=== PATIENT | female | born 1950 | race Caucasian/White ===

== ENCOUNTER 2017-12-11 14:07 | Outpatient (CLI) | payer MEDICARE, OTHER ==
--- NOTE | 2017-12-25 09:09 | Mammography Report ---
Reason: SCREENING MAMMO Procedure Date: 12/11/2017 Accession Number: [id number] / [id number] Procedure: MGN - Screening Mammo Dig Bilat CPT Code: FULL RESULT: EXAM: Screening Mammo Dig Bilat DATE: 12/11/2017 2:36 PM CLINICAL HISTORY: Routine screening TECHNIQUE: Bilateral CC and MLO views were obtained. COMPARISON: Unavailable. FINDINGS: There are scattered fibroglandular densities. No suspicious masses, clustered microcalcifications, or regions of architectural distortion are identified. IMPRESSION: Negative. If prior images from [facility] become available, an addended report will be issued. RECOMMENDATION: Routine annual screening unless otherwise clinically indicated. BIRADS CATEGORY 1: Negative. STANDARD QUALIFYING STATEMENTS: 1. This examination was reviewed with the aid of Computer-Aided Detection (CAD). 2. A negative or benign imaging report should not delay biopsy if clinically suspicious findings are present. Consider surgical consultation if warrented. More than 5% of cancers are not identified by imaging. 3. Dense breasts may obscure an underlying neoplasm.
== END 2017-12-11 14:08 | disposition home or self-care (01) ==
LOC: DI.N 14:07
PROVIDERS: ATTEND Registered Nurse
DX: Z12.31 Encounter for screening mammogram for malignant neoplasm of breast (principal)
CPT/HCPCS: 77067

== ENCOUNTER 2018-10-19 12:38 | Outpatient (CLI) | payer MEDICARE ==
--- NOTE | 2018-10-20 14:05 | XRAY Report ---
Reason: PAIN IN LEFT FOOT Procedure Date: 10/19/2018 Accession Number: [id number] / [id number] Procedure: XRS - Foot 3 View LT CPT Code: FULL RESULT: EXAM: LEFT FOOT RADIOGRAPHY EXAM DATE: 10/19/2018 01:07 PM. CLINICAL HISTORY: Acute pain in left foot. Focal to the cuboid and base of fifth metatarsal. COMPARISON: None. TECHNIQUE: 3 views. FINDINGS: Bones: Mildly displaced avulsion fracture seen arising from the dorsal proximal aspect of the left navicular seen on the lateral view. Additionally, there is a crescentic calcification seen along the plantar and lateral aspect of the left fourth metatarsal head consistent with an avulsion fracture measuring overall length approximately 7 mm. Tiny calcific density seen along the lateral margin of the left fifth metatarsal head may represent an avulsion fracture. Plantar and posterior calcaneal spurs. Joints: Mild degenerative changes of the first MTP joint and left midfoot. No dislocation. Soft Tissues: Soft tissue swelling. IMPRESSION: 1. Left fourth metatarsal head and dorsal proximal left navicular avulsion fractures. Possible tiny chip avulsion fracture from the left lateral fifth metatarsal head. RADIA
== END 2018-10-19 12:39 | disposition home or self-care (01) ==
LOC: DI.S 12:38
PROVIDERS: ATTEND Nurse Practitioner Family
DX: S92.342A Displaced fracture of fourth metatarsal bone, left foot, initial encounter for closed fracture (principal); S92.252A Displaced fracture of navicular [scaphoid] of left foot, initial encounter for closed fracture; M19.072 Primary osteoarthritis, left ankle and foot

== ENCOUNTER 2018-12-16 09:24 | Outpatient (CLI) | payer MEDICARE ==
--- NOTE | 2018-12-17 14:06 | XRAY Report ---
Reason: RIGHT SHOULDER PAIN Procedure Date: 12/16/2018 Accession Number: [id number] / [id number] Procedure: XRS - Shoulder 3 View RT CPT Code: FULL RESULT: EXAM: RIGHT SHOULDER RADIOGRAPHY EXAM DATE: 12/16/2018 09:42 AM. CLINICAL HISTORY: Right shoulder pain acute onset for 1 month, no known injury. COMPARISON: None. TECHNIQUE: 3 views. FINDINGS: Bones: No fracture or bone lesion. Joints: The glenohumeral and acromioclavicular joints demonstrate a mild degenerative process; no dislocation or subluxation seen. Soft tissues: The visualized hemithorax is unremarkable. No soft tissue swelling or calcification. IMPRESSION: Mild degenerative changes in the right shoulder radiography. RADIA
== END 2018-12-16 09:25 | disposition home or self-care (01) ==
LOC: DI.S 09:24
PROVIDERS: ATTEND Physician Assistant
DX: M19.011 Primary osteoarthritis, right shoulder (principal)

== ENCOUNTER 2019-03-08 16:19 | Outpatient (CLI) | payer MEDICARE ==
--- NOTE | 2019-03-08 18:04 | MRI Report ---
Reason: ROTATOR CUFF IMPINGEMENT SYNDROME Procedure Date: 03/08/2019 Accession Number: [id number] / [id number] Procedure: MRI - Shoulder RT W/O CPT Code: Final Report FULL RESULT: EXAM: RIGHT SHOULDER MRI WITHOUT CONTRAST EXAM DATE: 03/08/2019 05:08 PM. CLINICAL HISTORY: Rotator cuff impingement syndrome. COMPARISON: None. TECHNIQUE: Multiplanar, multisequence T1-weighted and fluid-sensitive sequences of the shoulder without contrast. Other: None. FINDINGS: Acromioclavicular Region: The acromion is type II unipartite. AC joint shows some synovial hypertrophic change and small joint effusion. The coracoacromial and coracoclavicular ligaments are intact. There is some fluid in the bursa as well. Glenohumeral Region: No subluxation. No effusion or loose bodies. There is minimal thinning of the inferior aspect of the glenohumeral articulation cartilaginous thickness. The glenohumeral ligaments and joint capsule are unremarkable. Bone Marrow: No fractures. Benign-appearing cystic structure seen in the anterior aspect of the humeral head. Series 401 image 19. Labrum: Type II SLAP lesion with some extension into the anterior labrum. Series 401 image 19, series 501 image 16. No paralabral cyst. Musculature/Rotator Cuff: Anterior high-grade partial-thickness undersurface tear distal supraspinatus portion of the rotator cuff involves about 90% of the tendon thickness and measures about 5 x 5 mm. Series 701 image 25, series 501 image 11. Remainder of the supraspinatus tendon and a portion of the infraspinatus tendon is thickened and shows increased T2 signal. Subscapularis and teres minor are normal. No proximal muscle edema or fatty atrophy is seen. Biceps Tendon: The long head of the biceps tendon and biceps tammi are intact. Other: The subcutaneous tissues are unremarkable. IMPRESSION: 1. Type II unipartite undersurface osseous acromion shape. AC joint shows moderate osteoarthritic change. Some fluid is present in the bursa. 2. Type II SLAP lesion with some extension into the anterior labrum. No paralabral cyst. 3. Anterior supraspinatus shows a high-grade undersurface partial-thickness tear involving about 90% of the tendon thickness measuring about 5 x 5 mm. Remainder of the supraspinatus and a portion of the infraspinatus show significant tendinitis. 4. Biceps tendon appears unremarkable. RADIA
== END 2019-03-08 16:20 | disposition home or self-care (01) ==
LOC: DI 16:19
PROVIDERS: ATTEND Orthopaedic Surgery Sports Medicine
DX: M19.011 Primary osteoarthritis, right shoulder (principal); S43.431A Superior glenoid labrum lesion of right shoulder, initial encounter; M75.101 Unspecified rotator cuff tear or rupture of right shoulder, not specified as traumatic; M75.91 Shoulder lesion, unspecified, right shoulder

== ENCOUNTER 2023-04-03 13:59 | Emergency (ER) | payer MEDICARE ==
[2023-04-03] MEDS ORDERED: ACETAMINOPHEN 325 MG TABLET PO STA (14:36)
--- NOTE | 2023-04-03 14:54 | ED Physician Documentation ---
History of Present Illness - Stated complaint Stated Complaint: HIGH BP,ERAZO - Chief complaint Chief Complaint: Heent - History obtained from History obtained from: Patient - Additonal information Additional information: Patient is a 72-year-old female presenting for evaluation of headache and elevated blood pressure readings. Patient states that she is had a 2 out of 10 mild throbbing headache to the right side of her head for the past few days. She does not usually get headaches. She denies exertion at onset of headache. She does not take a blood thinner. She states that today while at [facility] she checked her blood pressure. She denies that her headache was worse at the time. The machine read that her systolic was in the 170s and was blinking redness and that this was dangerous. She has been monitoring her blood pressure At home and has noted that her blood pressures were in the 140s to 150s. She does not currently take any medications for her blood pressure. She reached out to [facility] and they directed her to the emergency department for evaluation. She denies visual disturbances, chest pain, shortness of air, dizziness, syncope. She only takes allopurinol for gout.She has not taken anything for her headache. Review of Systems Constitutional: denies: Fever Cardiac: denies: Chest pain / pressure Respiratory: denies: Dyspnea GI: denies: Abdominal Pain Neurologic: reports: Headache. denies: Syncope PD PAST MEDICAL HISTORY - Present Medications Home Medications: Ambulatory Orders Medication Instructions Recorded Confirmed allopurinoL [Allopurinol] 400 mg PO DAILY 04/03/23 - Allergies Allergies/Adverse Reactions: Allergies Allergy/AdvReac Type Severity Reaction Status Date / Time No Known Drug Allergies Allergy Verified 04/03/23 14:16 PD ED PE NORMAL - General General: Alert and oriented X 3, No acute distress, Well developed/nourished - HEENT HEENT: Atraumatic, PERRL, EOMI, Moist mucous membranes, Pharynx benign - Neck Neck: Supple, no meningeal sign - Cardiac Cardiac: RRR - Respiratory Respiratory: No respiratory distress, Clear bilaterally - Abdomen Abdomen: Normal bowel sounds, Soft, Non tender, Non distended - Derm Derm: Warm and dry - Neuro Neuro: Alert and oriented X 3, 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 Relevant findings are: Rate 61, normal sinus rhythm, no STEMI - Labs Labs: Laboratory Tests 04/03/23 04/03/23 14:50 14:50 WBC 6.2 RBC 4.13 L Hgb 13.6 Hct 41.9 MCV 101.5 H MCH 32.9 H MCHC 32.5 RDW 14.0 Plt Count 180 MPV 10.0 Neut # (Auto) 3.1 Lymph # (Auto) 2.3 Upson # (Auto) 0.5 Eos # (Auto) 0.2 Baso # (Auto) 0.0 Absolute Nucleated RBC 0.00 Nucleated RBC % 0.0 Sodium 139 Potassium 3.9 Chloride 105 Carbon Dioxide 29 Anion Gap 5.0 L BUN 17 Creatinine 0.7 Estimated GFR (MDRD) 82 L Glucose 97 Calcium 9.1 PD Medical Decision Making - ED course Complexity details: reviewed results, re-evaluated patient, d/w patient ED course: Patient is a 72-year-old female presenting for evaluation of elevated blood pressure in the setting of headache. Her headache appears very mild only a 2 out of 10 with no focal deficits. Her blood pressure is only slightly elevated here in the 140s. However she did report having higher readings earlier including today with 170s. Therefore due to her age and reported symptoms I did obtain an EKG, CBC, BMP and CT of her head. No arrhythmias noted on her EKG. Labs are unrevealing. CT head is negative for intracranial hemorrhage. She is feeling better here with p.o. Tylenol. Her blood pressure has remained stable. At this time I do not feel she warrants emergent treatment for her Blood pressure and essentially appears to be asymptomatic now. She does have follow- up with [facility] tomorrow. She understands the importance of close follow-up as well as concerning symptoms to return for. Departure - Departure Disposition: 01 Home, Self Care Clinical Impression: Headache, Elevated blood pressure reading Condition: Stable Instructions: ED Cephalgia Unspecified, ED Hypertension Poss Follow-Up: [facility] [Provider Group] Comments: Your head CT along with a CBC and chemistries today were normal without any concerning findings. Your blood pressure has improved here without any specific intervention. Please have close follow-up with [facility]. Return to the ER with any worsening symptoms. Forms: PCP List Discharge Date/Time: 04/03/23 17:06
[2023-04-03 14:57] LABS: BASOPHILS % (AUTO) 0.6 %; EOSINOPHILS # (AUTO) 0.2 10^3/uL (0.0-0.7); EOSINOPHILS % (AUTO) 2.4 %; HCT - HEMATOCRIT 41.9 % (37.0-47.0); HGB - HEMOGLOBIN 13.6 g/dL (12.0-16.0); LYMPHOCYTES # (AUTO) 2.3 10^3/uL (1.5-3.5); LYMPHOCYTES % (AUTO) 37.5 %; MEAN CORPUSCULAR HEMOGLOBIN 32.9 pg (27.0-31.0); MEAN CORPUSCULAR HGB CONC 32.5 g/dL (32.0-36.0); MEAN CORPUSCULAR VOLUME 101.5 fL (81.0-99.0); MONOCYTES # (AUTO) 0.5 10^3/uL (0.0-1.0); MONOCYTES % (AUTO) 8.6 %; NEUTROPHILS # (AUTO) 3.1 10^3/uL (1.5-6.6); NEUTROPHILS % (AUTO) 50.6 %; PLT - PLATELET COUNT 180 10^3/uL (130-450); RED BLOOD COUNT 4.13 10^6/uL (4.20-5.40); WHITE BLOOD COUNT 6.2 x10^3/uL (4.8-10.8)
[2023-04-03 15:10] LABS: CALCIUM 9.1 mg/dL (8.5-10.3); CREATININE 0.7 mg/dL (0.6-1.3); POTASSIUM 3.9 mmol/L (3.5-4.5)
--- NOTE | 2023-04-03 16:19 | CT Report ---
PROCEDURE: Head WO INDICATIONS: R sided headache TECHNIQUE: Noncontrast 4.5 mm thick angled axial sections acquired from the foramen magnum to the vertex. For r adiation dose reduction, the following was used: automated exposure control, adjustment of mA and/or kV according to patient size. COMPARISON: None. FINDINGS: Image quality: Excellent. CSF spaces: Basal cisterns are patent. No extra-axial fluid collections. Ventricles are normal in size and shape. Brain: No midline shift. No intracranial masses or hemorrhage. Spencer-white matter interface is norm al. Intracranial carotid calcifications. Age-related volume loss and mild small vessel ischemic guerrero ge. Skull and face: Calvarium and visualized facial bones are intact, without suspicious lesions. Sinuses: Visualized sinuses and mastoids are clear. IMPRESSION: Age-appropriate findings. No acute intracranial pathology. Reviewed by: Ken Ramos MD on 04/03/2023 4:18 PM PST Approved by: Ken Ramos MD on 04/03/2023 4:18 PM PST Station ID: [id number]
[2023-04-03 16:46] VITALS: BP 142/79; O2SAT 98
== END 2023-04-03 17:06 | disposition home or self-care (01) ==
LOC: ED 13:59
DX: R51.9 Headache, unspecified (principal); R03.0 Elevated blood-pressure reading, without diagnosis of hypertension
CPT/HCPCS: 36415; 70450; 80048; 85025; 93005; 99283; 99284; A9270